=== PATIENT | male | born 1985 | race Caucasian/White ===

== ENCOUNTER 2017-12-29 23:47 | Emergency (ER) | payer BC ==
[~2017-12-29] VITALS: Ht 182.9 cm; Wt 97.1 kg
[2017-12-29 23:52] VITALS: Ht 182.9 cm; Wt 97.1 kg
[2017-12-30 00:12] VITALS: BP 154/81
== END 2017-12-30 00:12 | disposition home or self-care (01) ==
LOC: ED 23:47
DX: L03.112 Cellulitis of left axilla (principal)